=== PATIENT | female | born 1980 | race African-American/Black ===

== ENCOUNTER 2016-10-01 15:29 | Emergency (ER) | payer SELFPAY ==
[~2016-10-01] VITALS: Ht 162.6 cm; Wt 71.7 kg
[~2016-10-01 15:29] MED LIST: METH-37 PO; METO10TA81 PO; NITR100C62 PO; TRAM-29 PO
[2016-10-01 16:58] LABS: NEG OBC UR NEG; POS OBC UR POS
--- NOTE | 2016-10-01 17:16 | RAD ---
PROCEDURE CT abdomen and pelvis without intravenous contrast. HISTORY Abdominal pain, umbilical hernia. TECHNIQUE Helical CT of the abdomen and pelvis was performed without intravenous or oral contrast. Exposure: One or more of the following individualized dose reduction techniques were utilized for this examination: 1. Automated exposure control. 2. Adjustment of the mA and/or kV according to patient size. 3. Use of iterative reconstruction technique. COMPARISON None. FINDINGS Evaluation of solid organs is limited by lack of intravenous contrast. Evaluation of enteric structures may be limited by lack of oral contrast. Images of lower chest demonstrate small bilateral pleural effusions. Liver, spleen, pancreas, gallbladder, and bilateral adrenal glands are unremarkable. Bilateral kidneys and ureters are free of stone or obstruction. No bowel obstruction or inflammation is identified. Appendix is without evidence of inflammation. Urinary bladder is unremarkable. Uterus and adnexa have unremarkable CT appearance. No free air or significant free fluid is identified in the abdomen or pelvis. There is evidence of mild generalized fat stranding, suggesting mild generalized body wall edema. There is a small fat containing umbilical hernia. The hernia defect is estimated at 10 millimeters. There is some stranding within the herniated fat, suggesting inflammation. There might be an additional, adjacent fat containing hernia more inferiorly with hernia defect estimated at 4 millimeters. IMPRESSION 1. No evidence of urinary stone. 2. One and possibly 2 small fat containing umbilical hernias. The larger, more superior hernia demonstrates some stranding of the fat, suggesting inflammation. 3. Mild generalized body wall edema. 4. Small bilateral pleural effusions. Electronically signed by: Richard Freitas MD (Oct 01, 2016 17:15:06)
--- NOTE | 2016-10-01 17:46 | PHYS DOC ---
Past Medical History Past Medical History: Hypertension, Other Additional Past Medical Histor: uterine fibroid, hernia Past Surgical History: No Surgical History Alcohol Use: None Drug Use: None Social History Narrative: hx of PCP Adult General Chief Complaint Chief Complaint: ABDOMINAL PAIN HPI HPI 36-year-old female with a history of umbilical hernia states she was lifting something today and felt acute pain in the umbilical area. She states it feels like her hernia. She denies any nausea or vomiting. She is not any fever chills or sweats. [] Review of Systems Review of Systems Constitutional: Denies fever or chills [] Eyes: Denies change in visual acuity, redness, or eye pain [] HENT: Denies nasal congestion or sore throat [] Respiratory: Denies cough or shortness of breath [] Cardiovascular: No additional information not addressed in HPI [] GI: Per history of present illness [] : Denies dysuria or hematuria [] Musculoskeletal: Denies back pain or joint pain [] Integument: Denies rash or skin lesions [] Neurologic: Denies headache, focal weakness or sensory changes [] Endocrine: Denies polyuria or polydipsia [] Allergies Allergies Allergies Coded Allergies Type Severity Reaction Last Updated Verified No Known Drug Allergies 02/21/15 No Physical Exam Physical Exam Constitutional: Well developed, well nourished, no acute distress, non-toxic appearance. [] HENT: Normocephalic, atraumatic, bilateral external ears normal, oropharynx moist, no oral exudates, nose normal. [] Eyes: PERRLA, EOMI, conjunctiva normal, no discharge. [] Neck: Normal range of motion, no tenderness, supple, no stridor. [] Cardiovascular:Heart rate regular rhythm, no murmur [] Lungs & Thorax: Bilateral breath sounds clear to auscultation [] Abdomen: Very tender periumbilical area no rebound or guarding no palpable hernia. [] Skin: Warm, dry, no erythema, no rash. [] Back: No tenderness, no CVA tenderness. [] Extremities: No tenderness, no cyanosis, no clubbing, ROM intact, no edema. [] Neurologic: Alert and oriented X 3, normal motor function, normal sensory function, no focal deficits noted. [] Psychologic: Affect normal, judgement normal, mood normal. [] Current Patient Data Vital Signs Vital Signs Date Time Temp Pulse Resp B/P Pulse Ox O2 Delivery O2 Flow Rate FiO2 10/01/16 16:36 98.3 72 16 152/100 100 Room Air 98.3 Lab Values Laboratory Tests Test 10/01/16 16:45 Urine Test Negative (NEG) EKG EKG [] Radiology/Procedures Radiology/Procedures [] Impressions: PROCEDURE: ABDOMEN PELVIS WO CONTRAST PROCEDURE CT abdomen and pelvis without intravenous contrast. HISTORY Abdominal pain, umbilical hernia. TECHNIQUE Helical CT of the abdomen and pelvis was performed without intravenous or oral contrast. Exposure: One or more of the following individualized dose reduction techniques were utilized for this examination: 1. Automated exposure control. 2. Adjustment of the mA and/or kV according to patient size. 3. Use of iterative reconstruction technique. COMPARISON None. FINDINGS Evaluation of solid organs is limited by lack of intravenous contrast. Evaluation of enteric structures may be limited by lack of oral contrast. Images of lower chest demonstrate small bilateral pleural effusions. Liver, spleen, pancreas, gallbladder, and bilateral adrenal glands are unremarkable. Bilateral kidneys and ureters are free of stone or obstruction. No bowel obstruction or inflammation is identified. Appendix is without evidence of inflammation. Urinary bladder is unremarkable. Uterus and adnexa have unremarkable CT appearance. No free air or significant free fluid is identified in the abdomen or pelvis. There is evidence of mild generalized fat stranding, suggesting mild generalized body wall edema. There is a small fat containing umbilical hernia. The hernia defect is estimated at 10 millimeters. There is some stranding within the herniated fat, suggesting inflammation. There might be an additional, adjacent fat containing hernia more inferiorly with hernia defect estimated at 4 millimeters. IMPRESSION 1. No evidence of urinary stone. 2. One and possibly 2 small fat containing umbilical hernias. The larger, more superior hernia demonstrates some stranding of the fat, suggesting inflammation. 3. Mild generalized body wall edema. 4. Small bilateral pleural effusions. Course & Med Decision Making Course & Med Decision Making Pertinent Labs and Imaging studies reviewed. (See chart for details) [ED course: Evaluation reveals a 36-year-old female with some periumbilical tenderness CT shows some inflamed fat in the area. I spoke with Dr. Vázquez the surgeon who recommended anti-inflammatories and follow-up with him as an outpatient.] Dragon Disclaimer Dragon Disclaimer This electronic medical record was generated, in whole or in part, using a voice recognition dictation system. Departure Departure Impression: Primary Impression: Umbilical hernia Disposition: HOME, SELF-CARE Condition: STABLE Referrals: ALICE HADLEY MD (PCP) AMADOU VÁZQUEZ MD Follow with Dr. Vázquez this week if your pain continues. Take pain medicine as directed Patient Instructions: Hernia Additional Instructions: Thank you for allowing us to participate in your care today. Followup with your primary care physician in 3 days if your symptoms do not improve. Return to the emergency department you have any new or concerning findings. This should be evaluated by the primary care physician and any necessary consulting services for continued management within a few days after discharge. Return to emergency room if you have any new or concerning symptoms including but not limited to fever, chills, nausea, vomiting, intractable pain, any new rashes, chest pain, shortness of air, uncontrolled bleeding, difficulty breathing, and/or vision loss. You may have been prescribed medication that can change in your level of thinking and ability to operate machinery. These medications include hydrocodone and Ativan. Also, Benadryl has been known to do this as well. Be sure to check with your pharmacist and ask if the medications you've prescribed can affect your level of consciousness. I recommend not operating heavy machinery or driving while on medication such as these. Scripts Hydrocodone/Apap 5-325 (Amenia 5-325 Tablet)1 Each Tablet1 Tab PO PRN Q6HRS PRN PAIN #20 TAB Prov:ROSMERY PENDLETON DO 10/01/16 Naproxen 500 Mg Tablet1 Tab PO BID PRN PAIN #30 TAB Ref 1 Prov:ROSMERY PENDLETON DO 10/01/16 Problem Qualifiers Primary Impression: Umbilical hernia Obstruction and gangrene presence: without obstruction or gangrene Qualified Code: K42.9 - Umbilical hernia without obstruction or gangrene ROSMERY PENDLETON DO Oct 01, 2016 17:45
[2016-10-01] MEDS ORDERED: NAPR500T3 PO (17:55)
[2016-10-01] MEDS ORDERED: HYDR-971 PO (17:55)
[2016-10-01] MEDS ORDERED: KETOROLAC TROMETHAMINE 30 MG/ML SYRINGE. IV ONE (18:00)
[2016-10-01 18:35] VITALS: BP 141/92
== END 2016-10-01 18:40 | disposition home or self-care (01) ==
LOC: ER 15:29
DX: K42.9 Umbilical hernia without obstruction or gangrene (principal); I10 Essential (primary) hypertension
CPT/HCPCS: 74176; 81025; 96374; 99284; J1885

== ENCOUNTER 2018-04-24 10:25 | Inpatient (IN) | payer SELFPAY ==
[2018-04-24 10:56] LABS: ADD MAN DIFF? NO
[2018-04-24 10:59] LABS: BASO % 1 % (0-3); EOS % 0 % (0-3); HEMATOCRIT 32.8 % (36.0-47.0); LYMPH # 1.6 x10^3/uL (1.0-4.8); LYMPH % 24 % (24-48); MEAN CORPUSCULAR HEMOGLOBIN 28 pg (25-35); MEAN CORPUSCULAR HGB CONC 33 g/dL (31-37); MEAN CORPUSCULAR VOLUME 85 fL (79-100); MONO # 0.6 x10^3/uL (0.0-1.1); MONO % 9 % (0-9); NEUT # 4.4 x10^3uL (1.8-7.7); NEUT % 66 % (31-73); PLATELET COUNT 385 x10^3/uL (140-400); RED BLOOD COUNT 3.86 x10^6/uL (3.50-5.40); RED CELL DISTRIBUTION WIDTH 14.3 % (11.5-14.5); WHITE BLOOD COUNT 6.6 x10^3/uL (4.0-11.0)
[2018-04-24 11:47] LABS: BILIRUBIN,URINE NEGATIVE (NEG); CLARITY,URINE CLEAR; COLOR,URINE YELLOW; GLUCOSE,URINE NEGATIVE (NEG); NITRITE,URINE NEGATIVE (NEG); PH,URINE 6.5; PROTEIN,URINE NEGATIVE (NEG-TRACE)
[2018-04-24 11:51] LABS: BACTERIA,URINE FEW /HPF (0-FEW); BARBITURATES NEG (NEG); BENZODIAZEPINES NEG (NEG); CANNABINOIDS NEG (NEG); COCAINE NEG (NEG); METHADONE NEG (NEG); OPIATES NEG (NEG); PHENCYCLIDINE POS (NEG); RBC,URINE 0 /HPF (0-2); SQUAMOUS EPITHELIAL CELL,UR MANY /LPF
[2018-04-24 11:55] LABS: AMPHETAMINE/METHAMPHETAMINE POS (NEG); ETHANOL, URINE NEG (NEG)
[2018-04-24 12:19] LABS: ALBUMIN 4.2 g/dL (3.4-5.0); ALBUMIN/GLOBULIN RATIO 1.2 (1.0-1.7); ALK PHOS 67 U/L (46-116); ALT (SGPT) 17 U/L (14-59); ANION GAP 12 (6-14); AST (SGOT) 19 U/L (15-37); BLOOD UREA NITROGEN 9 mg/dL (7-20); BUN/CREATININE RATIO 11 (6-20); CALCIUM 9.2 mg/dL (8.5-10.1); CARBON DIOXIDE 27 mmol/L (21-32); CHLORIDE 100 mmol/L (98-107); CREATININE 0.8 mg/dL (0.6-1.0); GFR 96.1; GLUCOSE 96 mg/dL (70-99); SODIUM 139 mmol/L (136-145); TOTAL BILIRUBIN 0.4 mg/dL (0.2-1.0); TOTAL PROTEIN 7.6 g/dL (6.4-8.2)
[2018-04-24] MEDS: ENOXAPARIN 40 MG/0.4 ML SYRINGE. SQ (14:55)
[2018-04-24] MEDS: POTASSIUM CHLORIDE 20 MEQ TABLET.ER. PO (14:56)
[2018-04-24] MEDS: VANCOMYCIN 1.25 GM in IV NORMAL SALINE 250ML 250 ML IV (14:56)
[2018-04-24] MEDS: ZIPRASIDONE IM 20 MG VIAL. IM (15:03)
[2018-04-24] MEDS: VANCOMYCIN PER PHARMACY MC (15:56)
[2018-04-24] MEDS ORDERED: PIP/TAZO PER PHARMACY MC (17:30)
[2018-04-24] MEDS: PIPERACILLIN/TAZOBACTAM 3.375 GM in IV NORMAL SALINE 50ML 50 ML IV (18:27)
[2018-04-24 19:52] LABS: HIV AB SCREEN Nonreactive (Nonreactive)
[2018-04-24] MEDS: LACTOBACILLUS RHAMNOSUS GG 1 CAPSULE. PO (22:34)
[2018-04-25] MEDS: PIPERACILLIN/TAZOBACTAM 3.375 GM in IV NORMAL SALINE 50ML 50 ML IV ×3 (00:27→11:43)
[2018-04-25] MEDS: VANCOMYCIN 1 GM in IV NORMAL SALINE 250ML 250 ML IV (03:30)
[2018-04-25 07:08] LABS: ADD MAN DIFF? NO; BASO % 1 % (0-3); EOS # 0.2 x10^3/uL (0.0-0.7); EOS % 4 % (0-3); HEMATOCRIT 30.6 % (36.0-47.0); HEMOGLOBIN 10.1 g/dL (12.0-15.5); LYMPH # 1.2 x10^3/uL (1.0-4.8); LYMPH % 27 % (24-48); MEAN CORPUSCULAR HEMOGLOBIN 28 pg (25-35); MEAN CORPUSCULAR HGB CONC 33 g/dL (31-37); MEAN CORPUSCULAR VOLUME 86 fL (79-100); MONO # 0.4 x10^3/uL (0.0-1.1); MONO % 9 % (0-9); NEUT # 2.8 x10^3uL (1.8-7.7); NEUT % 60 % (31-73); PLATELET COUNT 310 x10^3/uL (140-400); RED BLOOD COUNT 3.58 x10^6/uL (3.50-5.40); RED CELL DISTRIBUTION WIDTH 14.5 % (11.5-14.5); WHITE BLOOD COUNT 4.7 x10^3/uL (4.0-11.0)
[2018-04-25 07:17] LABS: ANION GAP 8 (6-14); BLOOD UREA NITROGEN 10 mg/dL (7-20); CALCIUM 8.7 mg/dL (8.5-10.1); CARBON DIOXIDE 29 mmol/L (21-32); CHLORIDE 104 mmol/L (98-107); CREATININE 0.9 mg/dL (0.6-1.0); GFR 83.9; GLUCOSE 84 mg/dL (70-99); POTASSIUM 3.3 mmol/L (3.5-5.1); SODIUM 141 mmol/L (136-145)
[2018-04-25] MEDS: LACTOBACILLUS RHAMNOSUS GG 1 CAPSULE. PO (08:05)
[2018-04-25] MEDS: POTASSIUM CHLORIDE 20 MEQ TABLET.ER. PO (09:13)
[2018-04-25] MEDS ORDERED: CONTRAST GIVEN. MC (10:30)
[2018-04-25] MEDS: TETANUS AND DIPHTHERIA TOX/PF 0.5 ML DISP.SYRIN. VAX IM (10:44)
[2018-04-25] MEDS: IOHEXOL 240 MG/ML 50ML VIAL. PO (11:35)
[2018-04-25] MEDS: IOHEXOL 300 MG/ML 100ML VIAL. IV (11:35)
[2018-04-25] MEDS: VANCOMYCIN PER PHARMACY MC (12:19)
[2018-04-28 14:17] LABS: URINE HCG POC HCG NEGATIVE (Negative)
== END 2018-04-25 13:55 | disposition home or self-care (01) | DRG 603 ==
LOC: ER 10:25 → ED HOLD 13:46 → 5 SOUTH 15:40
DX: L03.115 Cellulitis of right lower limb (principal); E87.6 Hypokalemia; F41.9 Anxiety disorder, unspecified; I10 Essential (primary) hypertension; F17.210 Nicotine dependence, cigarettes, uncomplicated; F15.159 Other stimulant abuse with stimulant-induced psychotic disorder, unspecified; F16.159 Hallucinogen abuse with hallucinogen-induced psychotic disorder, unspecified; F16.129 Hallucinogen abuse with intoxication, unspecified; Z81.1 Family history of alcohol abuse and dependence
CPT/HCPCS: 36415; 73590; 74160; 80048; 80053; 80307; 81001; 81025; 85025; 86703; 90714; 93971; 96365; 96372; 99285; 99285-25; J1650; J2543; J3370; J3486; J7050; Q9966; Q9967

== ENCOUNTER 2019-11-08 10:18 | Emergency (ER) | payer SELFPAY ==
[~2019-11-08] VITALS: Ht 162.6 cm; Wt 65.0 kg
[~2019-11-08 10:18] MED LIST changes: +AMOX1TAB61 PO; +DOXY100C14 PO; +HYDR-3164 PO; +NAPR-514 PO; -TRAM-29 PO; +TRAM-48 PO
[2019-11-08 10:30] VITALS: BP 137/78
--- NOTE | 2019-11-08 11:00 | PHYS DOC ---
Past Medical History Past Medical History: Hypertension, Other Additional Past Medical Histor: uterine fibroid, hernia (JOSEPH HUMMEL APRN) Past Surgical History: No Surgical History (JOSEPH HUMMEL APRN) Smoking Status: Never Smoker Alcohol Use: None Drug Use: None (JOSEPH HUMMEL APRN) Adult General Chief Complaint Chief Complaint: LACERATION/AVULSION HPI HPI Patient is a 39 year old female who presents with yesterday at 1000 cut her self on the side of a old style porcelain bathtub on the upper right forearm just distal to the elbow. Patient is due for a tetanus. Patient states that she cleaned it with peroxide and has been keeping it covered but is beginning to drop. Rates her pain a 03/25. (JOSEPH HUMMEL APRN) Review of Systems Review of Systems Integument: Upper arm laceration. Denies rash or skin lesions [] All other systems were reviewed and found to be within normal limits, except as documented in this note. (JOSEPH HUMMEL APRN) Current Medications Current Medications Current Medications Medications (Trade) Dose Ordered Sig/Arnoldo Start Time Stop Time Status Last Admin Dose Admin Diphtheria/ Tetanus/Acell Pertussis (Boostrix) 0.5 ml ONCE ONCE 11/08/19 13:15 11/08/19 13:16 DC 11/08/19 13:24 0.5 ML Lidocaine HCl (Lidocaine 1% 20ml Vial) 20 ml 1X ONCE 11/08/19 11:30 11/08/19 11:31 DC 11/08/19 12:18 20 ML (MORE SHEEHAN MD) Allergies Allergies Allergies Coded Allergies Type Severity Reaction Last Updated Verified No Known Drug Allergies 02/21/15 No (MORE SHEEHAN MD) Physical Exam Physical Exam Constitutional: Well developed, well nourished, no acute distress, non-toxic appearance. [] HENT: Normocephalic, atraumatic, bilateral external ears normal, oropharynx caro st, no oral exudates, nose normal. [] Eyes: PERRLA, EOMI, conjunctiva normal, no discharge. [] Neck: Normal range of motion, no tenderness, supple, no stridor. [] Cardiovascular:Heart rate regular rhythm, no murmur [] Lungs & Thorax: Bilateral breath sounds clear to auscultation [] Abdomen: Bowel sounds normal, soft, no tenderness, no masses, no pulsatile masses. [] Skin: Right upper posterior forearm laceration. Warm, dry, no erythema, no rash. [] Back: No tenderness, no CVA tenderness. [] Extremities: No tenderness, no cyanosis, no clubbing, ROM intact, no edema. [] Neurologic: Alert and oriented X 3, normal motor function, normal sensory function, no focal deficits noted. [] Psychologic: Affect normal, judgement normal, mood normal. [] (JOSEPH HUMMEL APRN) Current Patient Data Vital Signs Vital Signs Date Time Temp Pulse Resp B/P (MAP) Pulse Ox O2 Delivery O2 Flow Rate FiO2 11/08/19 10:30 97.5 98 14 137/78 (97) 98 Room Air 97.5 (MORE SHEEHAN MD) EKG EKG [] (JOSEPH HUMMEL APRN) Radiology/Procedures Radiology/Procedures [] (JOSEPH HUMMEL APRN) Impressions: [facility] [address] [place] [address] IMAGING REPORT Signed PATIENT: YUE HERCULES ACCOUNT: [id number] : 1980 LOCATION: ER AGE: 39 SEX: F EXAM STATUS: PRE ER ORD. PHYSICIAN: JOSEPH HUMMEL APRN REASON: laceration,pt states cut to elbow area from soap dish yesterday. PROCEDURE: FOREARM RIGHT EXAM: Right forearm, 2 views. HISTORY: Trauma. COMPARISON: None. FINDINGS: 2 views of the right forearm are obtained. There is no fracture, dislocation or subluxation. No lytic or sclerotic osseous lesion is seen. There is soft tissue gas due to a reported laceration along the dorsal proximal forearm. No foreign body is seen. IMPRESSION: Laceration involving the proximal dorsal forearm. No foreign body or fracture is seen. Electronically signed by: Rula Ansari MD (11/08/2019 11:18 AM) [id number] DICTATED and SIGNED BY: RULA ANSARI MD DATE: 11/08/19 111 (JOSEPH HUMMEL APRN) Course & Med Decision Making Course & Med Decision Making Pertinent Labs and Imaging studies reviewed. (See chart for details) Edges are approximated. No redness or swelling or bruising or deformity. No signs of infection. Skin pink warm and dry. Full ROM of all joints in the effected extremity. Cap refill less than 3 seconds. Radial pulse present. No laxity in the joint. No swelling in the joint. Bleeding is controlled. Patient is given a tetanus in the ED. Denies numbness or tingling , focal weakness Laceration Repair by me: Anesthesia: 1% lidocaine locally Location: Right upper forearm Tendon/Joint/Nerves: No injury Foreign body: None detected after copious irrigation with saline and chlorhexidine and exploration Technique: 6 Simple Interrupted Sutures Complexity: No subcutaneous sutures/mucosal repair/edge excision Post Closure Length: 2.5 cm Patient's bleeding was easily controlled in the department and there is no indication of anemia. No evidence of compartment syndrome, neurologic injury, vascular injury, open joint, tendon laceration, or foreign body. Patient is appropriate for outpatient follow up. 48 hour wound check. Scar minimization instructions given. [] (JOSEPH HUMMEL APRN) Course & Med Decision Making Staff Physician Addendum: I was working in the ER during the course of this patient's visit. I was available for consultation as needed, but I was not directly involved in the care of this patient. (MORE SHEEHAN MD) Dragon Disclaimer Dragon Disclaimer This electronic medical record was generated, in whole or in part, using a voice recognition dictation system. (JOSEPH HUMMEL APRN) Departure Departure Impression: Primary Impression: Laceration Disposition: 01 HOME, SELF-CARE Condition: STABLE Referrals: NO PCP (PCP) Patient Instructions: Laceration Care, Adult Additional Instructions: Follow up with primary care provider if needed. Keep clean and covered. Sutures need to be removed in 10 days. Use Ibuprofen for pain. JOSEPH HUMMEL APRN Nov 08, 2019 11:00 MORE SHEEHAN MD Nov 09, 2019 06:36
--- NOTE | 2019-11-08 11:21 | RAD ---
EXAM: Right forearm, 2 views. HISTORY: Trauma. COMPARISON: None. FINDINGS: 2 views of the right forearm are obtained. There is no fracture, dislocation or subluxation. No lytic or sclerotic osseous lesion is seen. There is soft tissue gas due to a reported laceration along the dorsal proximal forearm. No foreign body is seen. IMPRESSION: Laceration involving the proximal dorsal forearm. No foreign body or fracture is seen. Electronically signed by: Rula Walton MD (11/08/2019 11:18 AM) [id number]
[2019-11-08] MEDS ORDERED: LIDOCAINE 1% Multi-Dose 20 ML VIAL. INJ ONE (11:30)
[2019-11-08] MEDS ORDERED: DIPHTH,PERTUSS(ACELL),TET TOX 0.5 ML DISP.SYRIN. VAX IM ONE (13:15)
== END 2019-11-08 13:41 | disposition home or self-care (01) ==
LOC: ER 10:18
DX: S51.811A Laceration without foreign body of right forearm, initial encounter (principal); I10 Essential (primary) hypertension; X78.8XXA Intentional self-harm by other sharp object, initial encounter; Y93.89 Activity, other specified; Y92.89 Other specified places as the place of occurrence of the external cause; Y99.8 Other external cause status
CPT/HCPCS: 12001; 73090; 90471; 90715; 99283

== ENCOUNTER 2020-01-07 19:04 | Emergency (ER) | payer SELFPAY ==
[~2020-01-07] VITALS: Ht 162.6 cm; Wt 68.1 kg
--- NOTE | 2020-01-07 19:33 | PHYS DOC ---
Past Medical History Past Medical History: Hypertension, Other Additional Past Medical Histor: uterine fibroid, hernia (JOSEPH HUMMEL APRN) Past Surgical History: No Surgical History (JOSEPH HUMMEL APRN) Smoking Status: Never Smoker Alcohol Use: None Drug Use: None (JOSEPH HUMMEL APRN) General Adult EDM: Chief Complaint: VAGINAL BLEEDING HPI: HPI: Patient is a 39 year old female who presents with states that she has not had a period in 2 months and then earlier this week she began to have spotting. She states she has no pain but she is just spotting. Patient has no other complaints. She does state that she does not trust her sexual intercourse partner and would like to be tested and treated for sexually transmitted diseases today. (JOSEPH HUMMEL APRN) Review of Systems: Review of Systems: : Denies dysuria. Vaginal bleeding [] (JOSEPH HUMMEL APRN) Heart Score: Risk Factors: Risk Factors: DM, Current or recent (<one month) smoker, HTN, HLP, family history of CAD, obesity. Risk Scores: Score 0 - 3: 2.5% MACE over next 6 weeks - Discharge Home Score 4 - 6: 20.3% MACE over next 6 weeks - Admit for Clinical Observation Score 7 - 10: 72.7% MACE over next 6 weeks - Early Invasive Strategies (JOSEPH HUMMEL APRN) Allergies: Allergies: Allergies Coded Allergies Type Severity Reaction Last Updated Verified No Known Drug Allergies 02/21/15 No (JOSEPH HUMMEL APRN) Physical Exam: PE: Constitutional: Well developed, well nourished, no acute distress, non-toxic appearance. [] HENT: Normocephalic, atraumatic, bilateral external ears normal, oropharynx moist, no oral exudates, nose normal. [] Eyes: PERRLA, EOMI, conjunctiva normal, no discharge. [] Neck: Normal range of motion, no tenderness, supple, no stridor. [] Cardiovascular:Heart rate regular rhythm, no murmur [] Lungs & Thorax: Bilateral breath sounds clear to auscultation [] Abdomen: Bowel sounds normal, soft, no tenderness, no masses, no pulsatile masses. [] Skin: Warm, dry, no erythema, no rash. [] Back: No tenderness, no CVA tenderness. [] Extremities: No tenderness, no cyanosis, no clubbing, ROM intact, no edema. [] Neurologic: Alert and oriented X 3, normal motor function, normal sensory function, no focal deficits noted. [] Psychologic: Affect normal, judgement normal, mood normal. Normal physical exam [] (JOSEPH HUMMEL APRN) EKG: EKG: [] (JOSEPH HUMMEL APRN) Radiology/Procedures: Radiology/Procedures: [] (JOSEPH HUMMEL APRN) Impression: PROCEDURE: PELVIS COMPLETE PELVIS COMPLETE History: Dysfunctional vaginal bleeding Comparison: March 24, 2015 Findings: Multiple transabdominal sonographic images of pelvis are submitted. Uterus measured 9.4 x 7.1 x 8.6 cm. There is heterogeneity of the uterus with likely large mass on the order of 7.5 x 6.3 x 6.2 cm. There is loss of definition of the endometrium due to the large mass which abuts the endometrial cavity. Visualized endometrium is estimated about 0.2 cm in thickness. Right ovary measured about 3.3 x 2.5 x 2.5 cm. There is a focus of different echogenicity of the right ovary which is mostly hypoechoic on the order of 1.7 x 1.9 x 1.5 cm. There is normal low resistance vascularity of the right ovary. Left ovary measured 2.7 x 2.8 x 2 cm. There is a small focus of hypoechogenicity of the left ovary about 1.8 x 1.9 x 1.1 cm. There is normal low resistance vascularity of the left ovary. No significant free fluid is demonstrated. Impression: 1. Uterus is enlarged. There is large uterine mass up to 7.5 cm, likely large fibroid. There is poor definition of the endometrium although visualized endometrial thickness is within normal limits in thickness. 2. There are some small cysts/dominant follicles of the ovaries bilaterally. Electronically signed by: Sandeep Collier MD (01/07/2020 8:14 PM) [facility] (NUNO TAO Jr. DO) Course & Med Decision Making: Course & Med Decision Making Pertinent Labs and Imaging studies reviewed. (See chart for details) Patient is ambulatory with a steady gait. Skin pink warm and dry. Patient states she is not been taking her lisinopril as she is supposed to because it makes her "go to the restroom a lot". Abdomen is soft and nontender. Speaks in full clear sentences. No extremity swelling. Patient does admit to smoking PCP 1-2 weeks ago. Patient denies abdominal pain, nausea, vomiting, diarrhea, dysuria, back pain, headache, dizziness, chest pain, soa, numbness or tingling, vision changes, focal weakness. Pelvic Exam: [employer] present Abdomen: Nontender External Genitalia: Normal Skin Speculum: Normal vaginal mucosa, normal cervical discharge Bimanual: No adnexal masses or tenderness, No CMT Patient is treated with Rocephin and azithromycin for chlamydia and gonorrhea. She is educated that she will be called in 48 hours only if they come back positive. 2000: Patient signed over to Dr Tao [] (JOSEPH HUMMEL APRN) Dragon Disclaimer: Draglore Disclaimer: This electronic medical record was generated, in whole or in part, using a voice recognition dictation system. (JOSEPH HUMMEL APRN) Departure Departure Impression: Primary Impression: Uterine fibroid Qualified Codes: D25.9 - Leiomyoma of uterus, unspecified Disposition: HOME, SELF-CARE Condition: STABLE Referrals: NO PCP (PCP) ERICKA NUÑEZ MD Patient Instructions: Uterine Fibroid, [id number] JOSEPH HUMMEL APRN Jan 07, 2020 19:33 NUNO TAO Jr. DO Jan 07, 2020 20:53
[2020-01-07 19:38] LABS: BILIRUBIN,URINE NEGATIVE (NEG); CLARITY,URINE CLOUDY; COLOR,URINE YELLOW; NITRITE,URINE NEGATIVE (NEG); PH,URINE 6.5 (<5.0-8.0); PROTEIN,URINE NEGATIVE (NEG-TRACE); UROBILINOGEN,URINE 0.2 mg/dL (0.2 mg/dL)
[2020-01-07 19:42] LABS: BASO % 0 % (0-3); EOS # 0.1 x10^3/uL (0.0-0.7); EOS % 2 % (0-3); HEMOGLOBIN 10.4 g/dL (12.0-15.5); LYMPH % 34 % (24-48); MEAN CORPUSCULAR HEMOGLOBIN 27 pg (25-35); MEAN CORPUSCULAR HGB CONC 32 g/dL (31-37); MEAN CORPUSCULAR VOLUME 84 fL (79-100); MONO # 0.5 x10^3/uL (0.0-1.1); MONO % 8 % (0-9); NEUT # 3.2 x10^3/uL (1.8-7.7); NEUT % 55 % (31-73); PLATELET COUNT 301 x10^3/uL (140-400); RED BLOOD COUNT 3.81 x10^6/uL (3.50-5.40); RED CELL DISTRIBUTION WIDTH 14.8 % (11.5-14.5); WHITE BLOOD COUNT 5.9 x10^3/uL (4.0-11.0)
[2020-01-07 19:47] LABS: SQUAMOUS EPITHELIAL CELL,UR MOD /LPF
[2020-01-07 19:48] LABS: RBC,URINE 0 /HPF (0-2)
[2020-01-07 19:49] LABS: BACTERIA,URINE 0 /HPF (0-FEW)
[2020-01-07 19:56] LABS: CALCIUM 8.4 mg/dL (8.5-10.1); CREATININE 0.7 mg/dL (0.6-1.0); GFR 111.6; POTASSIUM 3.9 mmol/L (3.5-5.1)
[2020-01-07] MEDS ORDERED: AZITHROMYCIN 250 MG TABLET. PO ONE (20:00)
[2020-01-07] MEDS ORDERED: cefTRIAXone IM 250 MG VIAL IM ONE (20:00)
[2020-01-07 20:01] LABS: ALBUMIN 3.4 g/dL (3.4-5.0); ALBUMIN/GLOBULIN RATIO 1.1 (1.0-1.7); TOTAL BILIRUBIN 0.2 mg/dL (0.2-1.0); TOTAL PROTEIN 6.6 g/dL (6.4-8.2)
--- NOTE | 2020-01-07 20:17 | RAD ---
PELVIS COMPLETE History: Dysfunctional vaginal bleeding Comparison: March 24, 2015 Findings: Multiple transabdominal sonographic images of pelvis are submitted. Uterus measured 9.4 x 7.1 x 8.6 cm. There is heterogeneity of the uterus with likely large mass on the order of 7.5 x 6.3 x 6.2 cm. There is loss of definition of the endometrium due to the large mass which abuts the endometrial cavity. Visualized endometrium is estimated about 0.2 cm in thickness. Right ovary measured about 3.3 x 2.5 x 2.5 cm. There is a focus of different echogenicity of the right ovary which is mostly hypoechoic on the order of 1.7 x 1.9 x 1.5 cm. There is normal low resistance vascularity of the right ovary. Left ovary measured 2.7 x 2.8 x 2 cm. There is a small focus of hypoechogenicity of the left ovary about 1.8 x 1.9 x 1.1 cm. There is normal low resistance vascularity of the left ovary. No significant free fluid is demonstrated. Impression: 1. Uterus is enlarged. There is large uterine mass up to 7.5 cm, likely large fibroid. There is poor definition of the endometrium although visualized endometrial thickness is within normal limits in thickness. 2. There are some small cysts/dominant follicles of the ovaries bilaterally. Electronically signed by: Sandeep Collier MD (01/07/2020 8:14 PM) [facility]
[2020-01-07 20:24] VITALS: BP 159/99
== END 2020-01-07 21:04 | disposition home or self-care (01) ==
LOC: ER 19:04
DX: D25.9 Leiomyoma of uterus, unspecified (principal); I10 Essential (primary) hypertension; Z98.890 Other specified postprocedural states
CPT/HCPCS: 76856; 80053; 81001; 81025; 85025; 87086; 87491; 87591; 96372; 99284; J0696; Q0111

== ENCOUNTER 2020-01-30 03:25 | Emergency (ER) | payer SELFPAY ==
[~2020-01-30] VITALS: Ht 162.6 cm; Wt 65.3 kg
[2020-01-30] MEDS ORDERED: HYDROcodone/APAP 7.5/325MG 1 TAB TABLET PO ONE (04:00)
--- NOTE | 2020-01-30 04:43 | RAD ---
Ribs left with PA chest History: Pain PA view of the chest and dedicated views of the left ribs were obtained. The heart and pulmonary vessels appear normal. The lungs and pleural margins are clear. The visualized osseous structures appear intact. Impression: No acute findings. No evidence of a bony displaced rib fracture. Electronically signed by: Leroy Jaramillo III, MD (01/30/2020 4:40 AM) [id number]
[2020-01-30] MEDS ORDERED: TRAM50TA PO (05:22)
[2020-01-30] MEDS ORDERED: DICL50TA4 PO (05:22)
--- NOTE | 2020-01-30 05:23 | PHYS DOC ---
Past Medical History Past Medical History: Hypertension, Other Additional Past Medical Histor: uterine fibroid, hernia Past Surgical History: No Surgical History Smoking Status: Never Smoker Alcohol Use: Occasionally Additional Information: wine Drug Use: None General Adult EDM: Chief Complaint: MECHANICAL FALL HPI: HPI: Patient is a 39 year old female who presents with complaint of left-sided rib pain after falling while going downstairs. Patient states that she fell onto her ribs and now she has pain with movement and when she breathes. She denies any other injuries. She denies neck pain or head pain. She denies loss of consciousness. Patient rates pain as severe. [] Review of Systems: Review of Systems: Constitutional: Denies fever or chills. [] Respiratory: Denies cough or shortness of breath. [] Cardiovascular: Denies chest pain or edema. [] GI: Denies abdominal pain, nausea, vomiting or diarrhea. [] Neurologic: Denies headache, focal weakness or sensory changes. [] Heart Score: Risk Factors: Risk Factors: DM, Current or recent (<one month) smoker, HTN, HLP, family history of CAD, obesity. Risk Scores: Score 0 - 3: 2.5% MACE over next 6 weeks - Discharge Home Score 4 - 6: 20.3% MACE over next 6 weeks - Admit for Clinical Observation Score 7 - 10: 72.7% MACE over next 6 weeks - Early Invasive Strategies Current Medications: Current Medications Medications (Trade) Dose Ordered Sig/Arnoldo Start Time Stop Time Status Last Admin Dose Admin Acetaminophen/ Hydrocodone Bitart (Lortab 7.5/325) 1 tab 1X ONCE 01/30/20 04:00 01/30/20 04:15 DC 01/30/20 04:12 1 TAB Allergies: Allergies: Allergies Coded Allergies Type Severity Reaction Last Updated Verified No Known Drug Allergies 02/21/15 No Physical Exam: PE: Constitutional: Well developed, well nourished, no acute distress, non-toxic appearance. [] HENT: Normocephalic, atraumatic, bilateral external ears normal, oropharynx m oist, no oral exudates, nose normal. [] Neck: Normal range of motion, no tenderness, supple, no stridor. [] Cardiovascular: Regular rate and rhythm. There is reproducible chest wall tenderness along the left lower anterior as well as lateral rib margin [] Lungs & Thorax: Bilateral breath sounds clear to auscultation [] Abdomen: Bowel sounds normal, soft, no tenderness. [] Back: No tenderness, no CVA tenderness. [] Current Patient Data: Labs: Laboratory Tests Test 01/30/20 04:12 POC Urine HCG, Qualitative Hcg negative (Negative) Vital Signs: Vital Signs Date Time Temp Pulse Resp B/P (MAP) Pulse Ox O2 Delivery O2 Flow Rate FiO2 01/30/20 04:33 98.5 86 18 98 98.5 01/30/20 04:12 Room Air 01/30/20 03:43 157/95 (115) EKG: EKG: [] Radiology/Procedures: Radiology/Procedures: [] Impression: PROCEDURE: RIBS LEFT AND PA CHEST Ribs left with PA chest History: Pain PA view of the chest and dedicated views of the left ribs were obtained. The heart and pulmonary vessels appear normal. The lungs and pleural margins are clear. The visualized osseous structures appear intact. Impression: No acute findings. No evidence of a bony displaced rib fracture. Electronically signed by: Nayla Jaramillo III, MD (01/30/2020 4:40 AM) [id number] DICTATED and SIGNED BY: NAYLA JARAMILLO III, MD DATE: 01/30/20 0440 Course & Med Decision Making: Course & Med Decision Making Pertinent Labs and Imaging studies reviewed. (See chart for details) [] Dragon Disclaimer: Dragon Disclaimer: This electronic medical record was generated, in whole or in part, using a voice recognition dictation system. Departure Departure Impression: Primary Impression: Contusion of rib on left side Qualified Codes: S20.212A - Contusion of left front wall of thorax, initial encounter Disposition: 01 HOME, SELF-CARE Condition: STABLE Referrals: UNKNOWN PCP NAME (PCP) Patient Instructions: Rib Contusion Scripts Tramadol Hcl (TRAMADOL HCL) 50 Mg Tablet 50 MG PO Q6HRS PRN for PAIN, #12 TAB Prov: NUNO BISWAS Jr. DO 01/30/20 Diclofenac Sodium (DICLOFENAC SODIUM) 50 Mg Tablet.dr 1 TAB PO BID PRN for PAIN, #20 TAB Prov: NUNO BISWAS Jr. DO 01/30/20 NUNO BISWAS Jr. DO January 30, 2020 05:22
[2020-01-30] MEDS ORDERED: IBUPROFEN 400 MG TABLET. PO ONE (06:04)
[2020-01-30] MEDS ORDERED: IBUPROFEN 200 MG TABLET. PO ONE ×2 (06:04→06:15)
[2020-01-30 06:10] VITALS: BP 154/92
== END 2020-01-30 06:14 | disposition home or self-care (01) ==
LOC: ER 03:25
DX: S20.212A Contusion of left front wall of thorax, initial encounter (principal); I10 Essential (primary) hypertension; W10.8XXA Fall (on) (from) other stairs and steps, initial encounter; Y93.89 Activity, other specified; Y92.89 Other specified places as the place of occurrence of the external cause; Y99.8 Other external cause status
CPT/HCPCS: 71101; 81025; 99285

== ENCOUNTER 2020-02-04 15:08 | Emergency (ER) | payer SELFPAY ==
[~2020-02-04] VITALS: Ht 162.6 cm; Wt 67.2 kg
[~2020-02-04 15:08] MED LIST changes: +DICL50TA4 PO; +TRAM50TA PO
[2020-02-04 15:38] LABS: BILIRUBIN,URINE NEGATIVE (NEG); CLARITY,URINE CLEAR; COLOR,URINE YELLOW; NITRITE,URINE NEGATIVE (NEG); PROTEIN,URINE NEGATIVE (NEG-TRACE); UROBILINOGEN,URINE 0.2 mg/dL (0.2 mg/dL)
[2020-02-04 15:43] LABS: BARBITURATES NEG (NEG); BENZODIAZEPINES NEG (NEG); CANNABINOIDS POS (NEG); COCAINE NEG (NEG); METHADONE NEG (NEG); OPIATES NEG (NEG); PHENCYCLIDINE POS (NEG)
[2020-02-04 15:49] LABS: AMPHETAMINE/METHAMPHETAMINE POS (NEG)
[2020-02-04 15:54] LABS: BACTERIA,URINE MANY /HPF (0-FEW); RBC,URINE 0 /HPF (0-2); SQUAMOUS EPITHELIAL CELL,UR MANY /LPF; WBC,URINE OCC /HPF (0-4)
--- NOTE | 2020-02-04 17:19 | PHYS DOC ---
Past Medical History Past Medical History: Hypertension, Other Additional Past Medical Histor: uterine fibroid, hernia Past Surgical History: No Surgical History Smoking Status: Never Smoker Alcohol Use: Occasionally Drug Use: None Social History Narrative: PT REPORTS THAT SHE LAST USED METH AND MARIJUANA X 8 DAYS AGO General Adult EDM: Chief Complaint: LOWER EXT PAIN HPI: HPI: Patient is a 39 year old female with history of hypertension, psychosis, who presents to the ED today complaining she cannot see things crawling on her right lower extremity. Patient states this began this afternoon. She is holding her right lower extremity tight just below the knee and insisting she is trying to push the "things" crawling up her leg tight. She reports using Meth 1 week ago. Review of Systems: Review of Systems: Constitutional: Denies fever or chills. [] Eyes: Denies change in visual acuity. [] HENT: Denies nasal congestion or sore throat. [] Respiratory: Denies cough or shortness of breath. [] Cardiovascular: Denies chest pain or edema. [] GI: Denies abdominal pain, nausea, vomiting, bloody stools or diarrhea. [] : Denies dysuria. [] Musculoskeletal: Denies back pain or joint pain. [] Integument: Denies rash. [] Neurologic: Denies headache, focal weakness or sensory changes. [] Psychiatric: hx of psychosis. Reports things crawling on her right leg. Heart Score: Risk Factors: Risk Factors: DM, Current or recent (<one month) smoker, HTN, HLP, family history of CAD, obesity. Risk Scores: Score 0 - 3: 2.5% MACE over next 6 weeks - Discharge Home Score 4 - 6: 20.3% MACE over next 6 weeks - Admit for Clinical Observation Score 7 - 10: 72.7% MACE over next 6 weeks - Early Invasive Strategies Allergies: Allergies: Allergies Coded Allergies Type Severity Reaction Last Updated Verified No Known Drug Allergies 02/21/15 No Physical Exam: PE: Constitutional: Well developed, well nourished, no acute distress, non-toxic appearance. [] HENT: Normocephalic, atraumatic, bilateral external ears normal, oropharynx moist, no oral exudates, nose normal. [] Eyes: PERRLA, EOMI, conjunctiva normal, no discharge. [] Neck: Normal range of motion, no tenderness, supple, no stridor. [] Cardiovascular:Heart rate regular rhythm, no murmur [] Lungs & Thorax: Bilateral breath sounds clear to auscultation [] Abdomen: Bowel sounds normal, soft, no tenderness, no masses, no pulsatile masses. [] Skin: Warm, dry, no erythema, no rash. [] Back: No tenderness, no CVA tenderness. [] Extremities: No tenderness, no cyanosis, no clubbing, ROM intact, no edema. [] Neurologic: Alert and oriented X 3, normal motor function, normal sensory function, no focal deficits noted. [] Psychologic: Patient appears anxious, Current Patient Data: Labs: Laboratory Tests Test 02/04/20 15:30 Urine Collection Type Unknown Urine Color Yellow Urine Clarity Clear Urine pH 6.0 (<5.0-8.0) Urine Specific [place] 1.020 (1.000-1.030) Urine Protein Negative mg/dL (NEG-TRACE) Urine Glucose (UA) Negative mg/dL (NEG) Urine Ketones (Stick) Negative mg/dL (NEG) Urine Blood Negative (NEG) Urine Nitrite Negative (NEG) Urine Bilirubin Negative (NEG) Urine Urobilinogen Dipstick 0.2 mg/dL (0.2 mg/dL) Urine Leukocyte Esterase Negative (NEG) Urine RBC 0 /HPF (0-2) Urine WBC Occ /HPF (0-4) Urine Squamous Epithelial Cells Many /LPF Urine Bacteria Many /HPF (0-FEW) Urine Mucus Marked /LPF Urine Opiates Screen Neg (NEG) Urine Methadone Screen Neg (NEG) Urine Barbiturates Neg (NEG) Urine Phencyclidine Screen Pos (NEG) Urine Amphetamine/Methamphetamine Pos (NEG) Urine Benzodiazepines Screen Neg (NEG) Urine Cocaine Screen Neg (NEG) Urine Cannabinoids Screen Pos (NEG) Urine Ethyl Alcohol Neg (NEG) Vital Signs: Vital Signs Date Time Temp Pulse Resp B/P (MAP) Pulse Ox O2 Delivery O2 Flow Rate FiO2 02/04/20 15:16 97.9 134 22 166/98 (120) 99 Room Air 97.9 EKG: EKG: [] Radiology/Procedures: Radiology/Procedures: [] Course & Med Decision Making: Course & Med Decision Making Pertinent Labs and Imaging studies reviewed. (See chart for details) This is a 39-year-old female patient with history of psychosis presenting to the ED today stating she feels there is something crawling on her right lower extremity. Patient's right lower extremity has no acute findings. Drug screen positive for PCP, marijuana and meth use. Polly from the PAT team is in the ED talking to patient. Patient given resources for f/u. Angelina Disclaimer: Angelina Disclaimer: This electronic medical record was generated, in whole or in part, using a voice recognition dictation system. Departure Departure Impression: Primary Impression: Drug abuse Additional Impression: Psychosis Qualified Codes: F29 - Unspecified psychosis not due to a substance or known physiological condition Disposition: 01 HOME, SELF-CARE Condition: STABLE Referrals: UNKNOWN PCP NAME (PCP) follow up with resources provided by PAT team Patient Instructions: Drug Abuse, FAQs, Methamphetamine Abuse, Complications Additional Instructions: Follow up with resources provided by PAT team as soon as possible RUBINA MILES APRN February 04, 2020 17:19
[2020-02-04 17:26] VITALS: BP 100/55
== END 2020-02-04 17:44 | disposition home or self-care (01) ==
LOC: ER 15:08
DX: F15.10 Other stimulant abuse, uncomplicated (principal); F29 Unspecified psychosis not due to a substance or known physiological condition; I10 Essential (primary) hypertension
CPT/HCPCS: 80307; 81001; 99283

== ENCOUNTER 2021-04-15 23:44 | Emergency (ER) | payer SELFPAY ==
[~2021-04-15] VITALS: Ht 162.6 cm; Wt 70.5 kg
[~2021-04-15 23:44] MED LIST changes: +DOXY-181 PO; -DOXY100C14 PO
--- NOTE | 2021-04-16 01:01 | PHYS DOC ---
Past Medical History Past Medical History: Hypertension, Other Additional Past Medical Histor: uterine fibroid, hernia Past Surgical History: No Surgical History Smoking Status: Never Smoker Alcohol Use: None Drug Use: None General Adult EDM: Chief Complaint: VAGINAL PROBLEM HPI: HPI: Patient is a 41 year old female who presents with lower abdominal discomfort and thick white vaginal discharge. This started 3 days ago, the day after intercourse. Does not use barrier contraception. She has no history of STI personally. Her partner was recently released from [facility], and she is unsure of his STI status. She has no fever/chills. She does have slight burning with urination and with wiping. No n/v, diarrhea. Review of Systems: Review of Systems: Constitutional: Denies fever or chills. [] Eyes: Denies change in visual acuity. [] HENT: Denies nasal congestion or sore throat. [] Respiratory: Denies cough or shortness of breath. [] Cardiovascular: Denies chest pain or edema. [] GI: + abdominal pain. No nausea, vomiting, bloody stools or diarrhea. [] : + dysuria and vaginal discharge. [] Musculoskeletal: Denies back pain or joint pain. [] Integument: Denies rash. [] Neurologic: Denies headache, focal weakness or sensory changes. [] Endocrine: Denies polyuria or polydipsia. [] Lymphatic: Denies swollen glands. [] Psychiatric: Denies depression or anxiety. [] Heart Score: C/O Chest Pain: N/A Risk Factors: Risk Factors: DM, Current or recent (<one month) smoker, HTN, HLP, family history of CAD, obesity. Risk Scores: Score 0 - 3: 2.5% MACE over next 6 weeks - Discharge Home Score 4 - 6: 20.3% MACE over next 6 weeks - Admit for Clinical Observation Score 7 - 10: 72.7% MACE over next 6 weeks - Early Invasive Strategies Family History: Family History: No pertinent family hx Allergies: Allergies: Allergies Coded Allergies Type Severity Reaction Last Updated Verified No Known Drug Allergies 02/21/15 No Physical Exam: PE: Constitutional: Well developed, well nourished, no acute distress, non-toxic appearance. [] HENT: Normocephalic, atraumatic, bilateral external ears normal, oropharynx moist, no oral exudates, nose normal. [] Eyes: PERRLA, EOMI, conjunctiva normal, no discharge. [] Neck: Normal range of motion, no tenderness, supple, no stridor. [] Cardiovascular:Heart rate regular rhythm, no murmur [] Lungs & Thorax: Bilateral breath sounds clear to auscultation [] Abdomen: No significant lower abdominal/pelvic ttp. Bowel sounds normal, soft, no tenderness, no masses, no pulsatile masses. [] : Normal external genitalia. No evidence of herpes lesions. There is thick white discharge in the vaginal vault. Cervix is only partially visualized, but there is some red friable tissue. Partially/briefly visualized white ulcerated portion of the cervix was not fully seen. Skin: Warm, dry, no erythema, no rash. [] Back: No tenderness, no CVA tenderness. [] Extremities: No tenderness, no cyanosis, no clubbing, ROM intact, no edema. [] Neurologic: Alert and oriented X 3, normal motor function, normal sensory function, no focal deficits noted. [] Psychologic: Affect normal, judgement normal, mood normal. [] Current Patient Data: Labs: Laboratory Tests Test 04/16/21 00:01 POC Urine HCG, Qualitative Hcg negative (Negative) Vital Signs: Vital Signs Date Time Temp Pulse Resp B/P (MAP) Pulse Ox O2 Delivery O2 Flow Rate FiO2 04/15/21 23:59 98.3 105 20 153/110 (70) 99 Room Air 98.3 EKG: EKG: [] Radiology/Procedures: Radiology/Procedures: [] Course & Med Decision Making: Course & Med Decision Making Pertinent Labs and Imaging studies reviewed. (See chart for details) Patient is a 41-year-old female who presents with 3 days of thick white vaginal discharge, mild dysuria, and lower abdominal discomfort. On arrival is afebrile, mildly tachycardic to low 100s, but hemodynamically stable. Well appearing exam without significant lower abdominal ttp. Do not feel that she requires pelvic imaging for TOA or torsion etc. Do not think this is related to appy, will defer an abdominal imaging. Hcg negative. Most concerned about PID/STI. Will perform pelvic exam and obtain wet prep, gc/chlamydia and examine for herpetic lesions. Will also check a UA for UTI. 0100 Exam without evidence of herpetic lesions. Thick white discharge seen. Will treat for PID empirically with ceftriaxone IM here, and doxycycline and metronidazole twice daily. On cervical exam there was a concerning ulcerated portion of the cervix, that may represent potential malignancy. It was not fully visualized after multiple attempts. I expressed this to the patient and told her that it is vitally important that she follows up with them PUBLIC ACCOUNTANT doctor. She expresses understanding. I provided her with follow up information to be seen by our on- call cookie breaker. 0229 Wet prep neg for trichomonas and yeast. Suggestive of BV, which will be treated by empiric PID tx. 0308 Dragon Disclaimer: Dragon Disclaimer: This electronic medical record was generated, in whole or in part, using a voice recognition dictation system. Departure Departure Impression: Primary Impression: PID (acute pelvic inflammatory disease) Additional Impressions: Cervical ulceration Bacterial vaginosis Disposition: HOME / SELF CARE / HOMELESS Condition: STABLE Referrals: UNKNOWN PCP NAME (PCP) ERICKA NUÑEZ MD Please call the offices of Dr. Nuñez to schedule a follow-up appointment. Additional Instructions: I am concerned that you may have a cancer on your cervix. This will need to be checked by a specialist in the near future. Please call the offices of Dr. Nuñez, cookie breaker, to schedule an appointment to follow up. I am also concerned that you may have pelvic inflammatory disease, this is an infection caused by sexually transmitted bacteria. You will need to take antibiotics for this. Please take doxycycline and metronidazole as prescribed. Metronidazole can make you very ill if you drink alcohol. be sure not to drink while taking this medication. Scripts Metronidazole (METRONIDAZOLE) 500 Mg Tablet 1 TAB PO BID for 14 Days, #28 TAB 0 Refills Prov: HANNAH QUINTANA MD 04/16/21 Doxycycline Hyclate (DOXYCYCLINE HYCLATE) 100 Mg Capsule 1 CAP PO BID for 14 Days, #28 CAP Prov: HANNAH QUINTANA MD 04/16/21 HANNAH QUINTANA MD Apr 16, 2021 01:01
[2021-04-16 01:19] LABS: BASO % 1 % (0-3); EOS # 0.1 x10^3/uL (0.0-0.7); EOS % 2 % (0-3); HEMATOCRIT 31.1 % (36.0-47.0); HEMOGLOBIN 10.2 g/dL (12.0-15.5); LYMPH # 1.3 x10^3/uL (1.0-4.8); LYMPH % 26 % (24-48); MEAN CORPUSCULAR HEMOGLOBIN 28 pg (25-35); MEAN CORPUSCULAR HGB CONC 33 g/dL (31-37); MEAN CORPUSCULAR VOLUME 84 fL (79-100); MONO # 0.5 x10^3/uL (0.0-1.1); MONO % 9 % (0-9); NEUT # 3.1 x10^3/uL (1.8-7.7); NEUT % 62 % (31-73); PLATELET COUNT 285 x10^3/uL (140-400); RED BLOOD COUNT 3.69 x10^6/uL (3.50-5.40); RED CELL DISTRIBUTION WIDTH 15.3 % (11.5-14.5); WHITE BLOOD COUNT 5.1 x10^3/uL (4.0-11.0)
[2021-04-16 01:24] LABS: BILIRUBIN,URINE NEGATIVE (NEG); CLARITY,URINE CLEAR; COLOR,URINE YELLOW; NITRITE,URINE NEGATIVE (NEG); PROTEIN,URINE NEGATIVE (NEG-TRACE)
[2021-04-16 01:39] LABS: CALCIUM 8.9 mg/dL (8.5-10.1); CREATININE 0.8 mg/dL (0.6-1.0); GFR 94.7; POTASSIUM 4.1 mmol/L (3.5-5.1)
[2021-04-16 01:44] LABS: ALBUMIN 3.2 g/dL (3.4-5.0); TOTAL BILIRUBIN 0.1 mg/dL (0.2-1.0); TOTAL PROTEIN 6.4 g/dL (6.4-8.2)
[2021-04-16 01:44] LABS: BACTERIA,URINE FEW /HPF (0-FEW)
[2021-04-16 02:30] VITALS: BP 151/99
[2021-04-16] MEDS ORDERED: DOXY100C3 PO (02:34)
[2021-04-16] MEDS ORDERED: METR-34 PO (02:34)
[2021-04-16] MEDS ORDERED: cefTRIAXone IM 500 MG VIAL. IM ONE (03:00)
[2021-04-17 18:12] LABS: GC PROBE Negative (Negative)
== END 2021-04-16 03:26 | disposition home or self-care (01) ==
LOC: ER 23:44
DX: N73.0 Acute parametritis and pelvic cellulitis (principal); N86 Erosion and ectropion of cervix uteri; N76.0 Acute vaginitis; B96.89 Other specified bacterial agents as the cause of diseases classified elsewhere; I10 Essential (primary) hypertension
CPT/HCPCS: 80053; 81001; 81025; 85025; 87491; 87591; 96372; 99285; J0696; Q0111

== ENCOUNTER 2021-07-02 12:47 | Emergency (ER) | payer SELFPAY ==
[~2021-07-02] VITALS: Ht 162.6 cm; Wt 78.4 kg
[~2021-07-02 12:47] MED LIST changes: +DOXY100C3 PO; +METR-34 PO
[2021-07-02 13:31] LABS: BASO % 1 % (0-3); EOS # 0.1 x10^3/uL (0.0-0.7); EOS % 1 % (0-3); HEMATOCRIT 29.6 % (36.0-47.0); HEMOGLOBIN 9.9 g/dL (12.0-15.5); LYMPH # 1.2 x10^3/uL (1.0-4.8); LYMPH % 26 % (24-48); MEAN CORPUSCULAR HEMOGLOBIN 28 pg (25-35); MEAN CORPUSCULAR HGB CONC 33 g/dL (31-37); MEAN CORPUSCULAR VOLUME 83 fL (79-100); MONO # 0.4 x10^3/uL (0.0-1.1); MONO % 8 % (0-9); NEUT # 3.1 x10^3/uL (1.8-7.7); NEUT % 65 % (31-73); PLATELET COUNT 322 x10^3/uL (140-400); RED BLOOD COUNT 3.57 x10^6/uL (3.50-5.40); WHITE BLOOD COUNT 4.9 x10^3/uL (4.0-11.0)
[2021-07-02 13:42] LABS: CALCIUM 8.8 mg/dL (8.5-10.1); CREATININE 0.9 mg/dL (0.6-1.0); GFR 82.7; POTASSIUM 3.3 mmol/L (3.5-5.1)
[2021-07-02 14:13] LABS: BILIRUBIN,URINE NEGATIVE (NEG); CLARITY,URINE CLEAR; COLOR,URINE YELLOW; NITRITE,URINE NEGATIVE (NEG); PROTEIN,URINE 30 mg/dL (NEG-TRACE); UROBILINOGEN,URINE 0.2 mg/dL (0.2 mg/dL)
[2021-07-02 14:19] LABS: BARBITURATES NEG (NEG); BENZODIAZEPINES NEG (NEG); CANNABINOIDS NEG (NEG); COCAINE NEG (NEG); METHADONE NEG (NEG); OPIATES NEG (NEG); PHENCYCLIDINE POS (NEG)
[2021-07-02 14:21] LABS: BACTERIA,URINE MODERATE /HPF (0-FEW); RBC,URINE 0 /HPF (0-2)
[2021-07-02 14:23] LABS: AMPHETAMINE/METHAMPHETAMINE POS (NEG); YEAST,URINE PRESENT /HPF
--- NOTE | 2021-07-02 14:59 | PHYS DOC ---
Past Medical History Past Medical History: Hypertension, Other Additional Past Medical Histor: uterine fibroid, hernia (MERLENE DIXON) Past Surgical History: No Surgical History (MERLENE DIXON) Smoking Status: Never Smoker Alcohol Use: None Drug Use: Marijuana, Methamphetamine, Phencyclidine (MERLENE DIXON) General Adult EDM: Chief Complaint: LOWER EXT PAIN HPI: HPI: Patient is a 41 year old female who presents with multiple red lesions to her posterior aspect of left lower extremity. Patient states she noticed the first 1 about 3 months ago, but it is now larger and darker in color. She states she had a second lesion show up recently, which is 3 times the size of the first. She states she can feel "something moving inside of there." She states it is worse when she showers or with manipulation. Patient denies fever, chills, night sweats and any pain or swelling. Patient reports use of marijuana PCP and methamphetamines. She denies use of tobacco products, IV drug use and alcohol use. Patient reports past medical history of hypertension and an umbilical hernia. Patient has no other complaints at this time. (MERLENE DIXON) Review of Systems: Review of Systems: ROS negative except as mentioned in HPI. (MERLENE DIXON) Heart Score: C/O Chest Pain: No (MERLENE DIXON) Allergies: Allergies: Allergies Coded Allergies Type Severity Reaction Last Updated Verified No Known Drug Allergies 07/02/21 No (MERLENE DIXON) Physical Exam: PE: Constitutional: Well developed, well nourished, no acute distress, non-toxic appearance. Cardiovascular: Heart rate regular rhythm, no murmur. Lungs & Thorax: Bilateral breath sounds clear to auscultation. Skin: Multiple small (less than 2 inches) areas of erythema without open lesion, discharge, fluctuance, induration. Largest of these is on the posterior calf has less than 2 mm wide palpable mass. Skin otherwise warm, dry, no erythema. Extremities: No tenderness, no cyanosis, no clubbing, ROM intact, no edema. Neurologic: Alert and oriented x3, normal motor function, normal sensory function, no focal deficits noted. Psychologic: Affect normal, poor judgment, mood "concerned." (MERLENE DIXON) Current Patient Data: Labs: Laboratory Tests Test 07/02/21 13:20 07/02/21 13:25 07/02/21 14:05 White Blood Count 4.9 x10^3/uL (4.0-11.0) Red Blood Count 3.57 x10^6/uL (3.50-5.40) Hemoglobin 9.9 g/dL (12.0-15.5) L Hematocrit 29.6 % (36.0-47.0) L Mean Corpuscular Volume 83 fL (79-100) Mean Corpuscular Hemoglobin 28 pg (25-35) Mean Corpuscular Hemoglobin Concent 33 g/dL (31-37) Red Cell Distribution Width 15.0 % (11.5-14.5) H Platelet Count 322 x10^3/uL (140-400) Neutrophils (%) (Auto) 65 % (31-73) Lymphocytes (%) (Auto) 26 % (24-48) Monocytes (%) (Auto) 8 % (0-9) Eosinophils (%) (Auto) 1 % (0-3) Basophils (%) (Auto) 1 % (0-3) Neutrophils # (Auto) 3.1 x10^3/uL (1.8-7.7) Lymphocytes # (Auto) 1.2 x10^3/uL (1.0-4.8) Monocytes # (Auto) 0.4 x10^3/uL (0.0-1.1) Eosinophils # (Auto) 0.1 x10^3/uL (0.0-0.7) Basophils # (Auto) 0.0 x10^3/uL (0.0-0.2) Sodium Level 141 mmol/L (136-145) Potassium Level 3.3 mmol/L (3.5-5.1) L Chloride Level 104 mmol/L (98-107) Carbon Dioxide Level 25 mmol/L (21-32) Anion Gap 12 (6-14) Blood Urea Nitrogen 17 mg/dL (7-20) Creatinine 0.9 mg/dL (0.6-1.0) Estimated GFR (Cockcroft-Gault) 82.7 Glucose Level 86 mg/dL (70-99) Calcium Level 8.8 mg/dL (8.5-10.1) Urine Collection Type Unknown Urine Color Yellow Urine Clarity Clear Urine pH 6.0 (<5.0-8.0) Urine Specific [place] >=1.030 (1.000-1.030) Urine Protein 30 mg/dL (NEG-TRACE) Urine Glucose (UA) Negative mg/dL (NEG) Urine Ketones (Stick) 15 mg/dL (NEG) Urine Blood Negative (NEG) Urine Nitrite Negative (NEG) Urine Bilirubin Negative (NEG) Urine Urobilinogen Dipstick 0.2 mg/dL (0.2 mg/dL) Urine Leukocyte Esterase Trace (NEG) Urine RBC 0 /HPF (0-2) Urine WBC 1-4 /HPF (0-4) Urine Squamous Epithelial Cells Mod /LPF Urine Bacteria Moderate /HPF (0-FEW) Urine Mucus Mod /LPF Urine Yeast Present /HPF Urine Opiates Screen Neg (NEG) Urine Methadone Screen Neg (NEG) Urine Barbiturates Neg (NEG) Urine Phencyclidine Screen Pos (NEG) Urine Amphetamine/Methamphetamine Pos (NEG) Urine Benzodiazepines Screen Neg (NEG) Urine Cocaine Screen Neg (NEG) Urine Cannabinoids Screen Neg (NEG) Urine Ethyl Alcohol Neg (NEG) POC Urine HCG, Qualitative Hcg negative (Negative) Laboratory Tests 07/02/21 13:20 Laboratory Tests 07/02/21 13:20 Vital Signs: Vital Signs Date Time Temp Pulse Resp B/P (MAP) Pulse Ox O2 Delivery O2 Flow Rate FiO2 07/02/21 14:01 98 22 141/83 (102) Room Air 07/02/21 13:01 98.4 98 98.4 (MERLENE DIXON) Radiology/Procedures: Radiology/Procedures: PROCEDURE: VENOUS LOWER EXTREMITY RIGHT EXAMINATION: US DPLX VENOUS EXTREMITY LOWER RT INDICATION: Reason: erythematous calf/ / Spl. Instructions: / History: COMPARISONS: 04/24/2018 TECHNIQUE: Grayscale, color and spectral Doppler evaluation of the right lower extremity deep venous system(s) was performed. FINDINGS: right common femoral, femoral and popliteal veins are normally compressible and demonstrate normally directed and appropriately phasic flow with augmentation. Normal flow is present within the saphenofemoral junctions and deep femoral veins in the proximal thighs and the posterior tibial and peroneal veins in the proximal calves. IMPRESSION: No evidence of deep venous thrombosis in the right lower extremity. Electronically signed by: Faheem Clarke DO (07/02/2021 3:06 PM) [id number] (MERLENE DIXON) Course & Med Decision Making: Course & Med Decision Making Pertinent Labs and Imaging studies reviewed. (See chart for details) Patient reports movement of what ever she believes to be in her leg here in the department, but it is not observed by myself or nursing staff. She states she i s concerned that she will be "written off" due to her substance use history, as she has been seen for similar symptoms in the past and told it was a result of her substance use. Ultrasound was ordered to rule out superficial venous thrombosis versus thrombophlebitis. Ultrasound performed today was negative. Contact dermatitis reaction as well as insect bites discussed with patient as possible sources of her multiple skin lesions on her lower leg. Patient instructed to use [id number] hy drocortisone and/or antihistamines for symptom relief. If the lesions do not improve or worsen, she was provided with contact information for a venetian blind cleaner. Cessation of substance use was discussed with the patient as well. Patient understands and is agreeable to discharge plan. (MERLENE DIXON) Dragon Disclaimer: Dragon Disclaimer: This electronic medical record was generated, in whole or in part, using a voice recognition dictation system. (MERLENE DIXON) Departure Departure Impression: Primary Impression: Skin depigmentation Additional Impressions: Skin lesion of right lower extremity Anemia Qualified Codes: D64.9 - Anemia, unspecified Disposition: 01 HOME / SELF CARE / HOMELESS Condition: STABLE Referrals: ELIZABET BUTLER (PCP) Patient Instructions: Rash, [id number] Additional Instructions: No clots, inflammation or foreign body are seen on ultrasound of areas of concern on your right lower extremity. The skin lesions on your leg could be a contact dermatitis or insect bites. If they cause you any discomfort or itching in the future, you may use topical antihistamine or topical steroid cream. I advised you to discontinue use of amphetamines, PCP and other street drugs. These substances could be contributing to your complaints today. If you continue to experience discomfort or the lesions spread, you may visit a venetian blind cleaner. Your primary care provider can further evaluate and manage the anemia seen on blood work today. Please return to the emergency department if your symptoms worsen or you develop new symptoms. Dr. Ramonita Galeano MD Dermatology [address] [place] [address] Attending Signature Attending Signature I have reviewed the PA/CHANNEL CEMENTER's note and plan of care. I was available for consultation as needed during the patient's visit in the emergency department. I agree with the clinical impression, plan, and disposition. (ERICKA PURCELL DO) MERLENE DIXON Jul 02, 2021 14:59 ERICKA PURCELL DO Jul 02, 2021 17:03
[2021-07-02 15:00] VITALS: BP 154/97
--- NOTE | 2021-07-02 15:08 | RAD ---
EXAMINATION: US DPLX VENOUS EXTREMITY LOWER RT INDICATION: Reason: erythematous calf/ / Spl. Instructions: / History: COMPARISONS: 04/24/2018 TECHNIQUE: Grayscale, color and spectral Doppler evaluation of the right lower extremity deep venous system(s) was performed. FINDINGS: right common femoral, femoral and popliteal veins are normally compressible and demonstrate normally directed and appropriately phasic flow with augmentation. Normal flow is present within the saphenofemoral junctions and deep femoral veins in the proximal thi ghs and the posterior tibial and peroneal veins in the proximal calves. IMPRESSION: No evidence of deep venous thrombosis in the right lower extremity. Electronically signed by: Faheem Clarke DO (07/02/2021 3:06 PM) [id number]
== END 2021-07-02 15:48 | disposition home or self-care (01) ==
LOC: ER 12:47
DX: D64.9 Anemia, unspecified (principal); L98.8 Other specified disorders of the skin and subcutaneous tissue; L81.8 Other specified disorders of pigmentation; I10 Essential (primary) hypertension
CPT/HCPCS: 36415; 80048; 80307; 81001; 81025; 85025; 87086; 93971; 99284

== ENCOUNTER 2022-02-05 14:46 | Emergency (ER) | payer SELFPAY ==
[~2022-02-05] VITALS: Ht 162.6 cm; Wt 72.7 kg
[2022-02-05 14:50] VITALS: BP 133/86
[2022-02-05] MEDS ORDERED: DIPHTH,PERTUSS(ACELL),TET TOX 0.5 ML DISP.SYRIN. VAX IM ONE (15:45)
[2022-02-05] MEDS ORDERED: IBUPROFEN 200 MG TABLET. PO ONE (15:45)
[2022-02-05] MEDS ORDERED: BACITRACIN TOPICAL OINT PACKET. TP ONE (15:45)
[2022-02-05] MEDS ORDERED: ACETAMINOPHEN 325 MG TABLET. PO ONE (15:45)
[2022-02-05] MEDS ORDERED: IBUP-1007 PO (17:33)
[2022-02-05] MEDS ORDERED: CEPH500T PO (17:33)
--- NOTE | 2022-02-05 17:34 | PHYS DOC ---
Past Medical History Past Medical History: Hypertension, Other Additional Past Medical Histor: uterine fibroid, hernia Past Surgical History: No Surgical History Smoking Status: Never Smoker Alcohol Use: None Drug Use: Marijuana, Methamphetamine, Phencyclidine General Adult EDM: Chief Complaint: MULTIPLE COMPLAINTS HPI: HPI: Patient is a 41-year-old female presents to the emergency department complaining of lacerating her right foot near her heel approximately 1 week ago while attempting to shave her calluses off. Patient reports her last tetanus immunization was greater than 5 years ago. Patient denies taking medications for pain or discomfort or trying nonpharmacological pain relief methods. Patient states she has been cleansing her cut foot daily since she shaved her calluses off. Patient reports her pain is not getting any better. Patient denies other physical complaints or physical concerns. Review of Systems: Review of Systems: 14 body systems of review of systems have been reviewed. See HPI for pertinent positives and negative responses, otherwise all other systems are negative, nonpertinent or noncontributory. Constitutional: Negative except as outlined in HPI above. Skin: Negative except as outlined in HPI above. Eyes: Negative except as outlined in HPI above. HENT: Negative except as outlined in HPI above. Respiratory: Negative except as outlined in HPI above. Cardiovascular: Negative except as outlined in HPI above. GI: Negative except as outlined in HPI above. : Negative except as outlined in HPI above. Musculoskeletal: Negative except as outlined in HPI above. Integument: Negative except as outlined in HPI above. Neurologic: Negative except as outlined in HPI above. Endocrine: Negative except as outlined in HPI above. Lymphatic: Negative except as outlined in HPI above. Psychiatric: Negative except as outlined in HPI above. Heart Score: C/O Chest Pain: No Risk Factors: Risk Factors: DM, Current or recent (<one month) smoker, HTN, HLP, family history of CAD, obesity. Risk Scores: Score 0 - 3: 2.5% MACE over next 6 weeks - Discharge Home Score 4 - 6: 20.3% MACE over next 6 weeks - Admit for Clinical Observation Score 7 - 10: 72.7% MACE over next 6 weeks - Early Invasive Strategies Current Medications: Current Medications Medications (Trade) Dose Ordered Sig/Arnoldo Start Time Stop Time Status Last Admin Dose Admin Acetaminophen (Tylenol) 650 mg 1X ONCE 02/05/22 15:45 02/05/22 15:46 DC 02/05/22 15:50 650 MG Bacitracin (Bacitracin Zinc Oint Pkt) 1 pkt 1X ONCE 02/05/22 15:45 02/05/22 15:46 DC 02/05/22 15:51 1 PKT Diphtheria/ Tetanus/Acell Pertussis (Boostrix) 0.5 ml ONCE ONCE 02/05/22 15:45 02/05/22 15:46 DC 02/05/22 15:53 0.5 ML Ibuprofen (Motrin) 600 mg 1X ONCE 02/05/22 15:45 02/05/22 15:46 DC 02/05/22 15:50 600 MG Allergies: Allergies: Allergies Coded Allergies Type Severity Reaction Last Updated Verified No Known Drug Allergies 02/05/22 No Physical Exam: PE: Constitutional: Well developed, well nourished, no acute distress, non-toxic appearance. 41-year-old female in no apparent distress. HENT: Normocephalic, atraumatic. Eyes: Conjunctiva normal, no discharge. Neck: Normal range of motion, no stridor. Cardiovascular: No cyanosis appreciated, distal cap refill less than 2 seconds. Lungs & Thorax: Patient is in no respiratory distress, no audible adventitious lung sounds appreciated. Abdomen: Nontender, no abnormalities noted. Skin: Warm, dry, no erythema, no rash. See extremity note for focused skin examination Back: No tenderness, no deformities. Extremities: No tenderness, no cyanosis, no clubbing, ROM intact, no edema. Except for right foot needle medial heel there are 2 small approximately 1 cm abrasions without purulent drainage, they are slightly erythematous, there is no lymphangitis appreciated, bilateral distal cap refill of lower extremities less than 2 seconds, bilateral dorsalis pedis pulses 2+. Full AROM/PROM of adjacent joints. There is no swelling or contusion. Neurologic: Alert and oriented X 3, normal motor function, normal sensory function, no focal deficits noted. Psychologic: Affect normal, judgement normal, mood normal. Current Patient Data: Vital Signs: Vital Signs Date Time Temp Pulse Resp B/P (MAP) Pulse Ox O2 Delivery O2 Flow Rate FiO2 02/05/22 14:50 98.6 104 18 133/86 (102) 100 Room Air 98.6 EKG: EKG: [] Radiology/Procedures: Radiology/Procedures: [] Course & Med Decision Making: Course & Med Decision Making Pertinent Labs and Imaging studies reviewed. (See chart for details) 41-year-old female, vital signs reviewed, presents to the emergency department concerning painful abrasions to right heel after shaving calluses off 1 week ago . Physical examination suspicious of right heel cellulitic infection, will start on Keflex regimen, will cleanse and apply antibiotic ointment to abrasions of the right heel, will bring patient's tetanus immunization up-to-date with Tdap today in the emergency department, give p.o. pain medications. Discussed with patient wound care, antibiotic use and side effects, follow-up with primary care Dr. Butler this week for reevaluation and ongoing management of pain. Return to ER precautions and concerns were discussed, patient gave verbal understanding of it is amenable to ED discharge planning. Discussed with the patient all findings and diagnostic testing as well as the need to follow-up with their primary care provider for further evaluation and tr eatment or return to the ED if any new or worsening symptoms. Strict return precautions were also discussed at length, the patient voiced understanding and agreement with the discharge planning. The patient was nontoxic in appearance, in no apparent distress, and hemodynamically stable at the time of disposition. Leannaon Disclaimer: Angelina Disclaimer: This electronic medical record was generated, in whole or in part, using a voice recognition dictation system. Departure Departure Impression: Primary Impression: Abrasion of right foot Qualified Codes: S90.811A - Abrasion, right foot, initial encounter Additional Impressions: Need for Tdap vaccination Cellulitis of foot Disposition: 01 HOME / SELF CARE / HOMELESS Condition: GOOD Referrals: ELIZABET BUTLER (PCP) Patient Instructions: Abrasions, Cellulitis Additional Instructions: You were seen today in the emergency department related to pain at the abrasion sites of your right foot after you had attempted to shave off your calluses. As we discussed your tetanus immunization was brought up-to-date today in the emergency department with a medication called Tdap, please update your immunization records accordingly, please apply antibiotic ointment and perform daily wound care to your right heel abrasions until healed. I am starting you on a antibiotic to take, you will take 1 tablet 4 times a day for the next 5 days. Please take this time to make an appointment to see Dr. Butler this coming week for reevaluation of your right foot infection. You may use [id number] Tylenol and or Motrin for ongoing aches and pains. Thank you for visiting our Emergency Department. It was a pleasure taking care of you today in the emergency department and we appreciate you trusting us with your care. If any additional problems come up don't hesitate to return to visit us. Please follow up with your primary care provider so they can plan additional care if needed and know about the problem that you had. If symptoms worsen come back to the Emergency Department. Any concerning symptoms that start such as chest pain, shortness of air, weakness or numbness on one side of the body, running high fevers or any other concerning symptoms return to the ER. Scripts Ibuprofen (IBUPROFEN) 600 Mg Tablet 600 MG PO PRN Q6HRS PRN for INFLAMMATION, #30 TAB 0 Refills Prov: ERICKA BRENNAN APRN 02/05/22 Cephalexin (CEPHALEXIN) 500 Mg Tablet 1 TAB PO QID for right foot cellulitis for 5 Days, #20 TAB 0 Refills Prov: ERICKA BRENNAN APRN 02/05/22 ERICKA BRENNAN APRN February 05, 2022 17:34
== END 2022-02-05 17:52 | disposition home or self-care (01) ==
LOC: ER 14:46
DX: S90.811A Abrasion, right foot, initial encounter (principal); L03.115 Cellulitis of right lower limb; I10 Essential (primary) hypertension; Y28.8XXA Contact with other sharp object, undetermined intent, initial encounter; Y93.89 Activity, other specified; Y92.89 Other specified places as the place of occurrence of the external cause; Y99.8 Other external cause status
CPT/HCPCS: 90471; 90715; 99284

== ENCOUNTER 2022-02-09 23:34 | Emergency (ER) | payer SELFPAY ==
[~2022-02-09] VITALS: Ht 162.6 cm; Wt 78.0 kg
[~2022-02-09 23:34] MED LIST changes: +CEPH500T PO; +IBUP-1007 PO
--- NOTE | 2022-02-10 00:35 | PHYS DOC ---
Past Medical History Past Medical History: Hypertension, Other Additional Past Medical Histor: uterine fibroid, hernia Past Surgical History: No Surgical History Smoking Status: Never Smoker Alcohol Use: None Drug Use: Marijuana, Methamphetamine, Phencyclidine General Adult EDM: Chief Complaint: INSECT BITE HPI: HPI: Patient is a 41 year old female who presents with "spider bite" to the posterior aspect of the left knee. Patient states she was in the basement at her mother's house gathering clothes when she killed a spider she noticed on the floor. Shortly after, she noticed a feeling "like a mosquito bite" on the back of her knee. It became red and itchy. Patient applied topical benadryl cream. She states this occurred during the early afternoon hours today. Patient presents to the ED now because she also has a headache. She is concerned that the spider bite is affecting her whole body. Patient denies fever, chills, generalized weakness, SOB, cough, abd pain, N/V/D, discharge or necrosis of wound. Review of Systems: Review of Systems: ROS negative or noncontributory except as mentioned in HPI. Heart Score: C/O Chest Pain: No Allergies: Allergies: Allergies Coded Allergies Type Severity Reaction Last Updated Verified No Known Drug Allergies 02/05/22 No Physical Exam: PE: Constitutional: Well developed, well nourished, no acute distress, non-toxic ap pearance. HENT: Normocephalic, atraumatic, bilateral external ears normal, oropharynx moist, no oral exudates, nose normal. Eyes: EOMI, conjunctiva normal, no discharge. Neck: Normal range of motion, no stridor. Skin: 2mm macule noted on medioposterior aspect of left knee with some surrounding erythema, no fluctuance or induration appreciated, no ulceration or necrosis. Skin otherwise warm, dry, no erythema, no rash. Extremities: No tenderness, no cyanosis, no clubbing, ROM intact, no edema. Neurologic: Alert and oriented x4, normal motor function, normal sensory function, no focal deficits noted. Current Patient Data: Vital Signs: Vital Signs Date Time Temp Pulse Resp B/P (MAP) Pulse Ox O2 Delivery O2 Flow Rate FiO2 02/10/22 00:50 98.0 99 16 162/100 (120) 100 Room Air 98.0 02/10/22 00:18 98.1 109 16 166/111 (129) 100 Room Air 98.1 Course & Med Decision Making: Course & Med Decision Making Pertinent Labs and Imaging studies reviewed. (See chart for details) Patient presents with insect bite that shows no signs of skin breakdown, necrosis or systemic effects at this time. Patient will be provided with wound care clinic information should her wound condition worsen. Elevated blood pressure discussed. Supportive measures and return precautions provided. Patient understands and is agreeable to discharge plan. Dragon Disclaimer: Dragon Disclaimer: This electronic medical record was generated, in whole or in part, using a voice recognition dictation system. Departure Departure Impression: Primary Impression: Insect bite Qualified Codes: S80.862A - Insect bite (nonvenomous), left lower leg, initial encounter; W57.XXXA - Bitten or stung by nonvenomous insect and other nonvenomous arthropods, initial encounter Additional Impression: Elevated blood pressure reading Disposition: HOME / SELF CARE / HOMELESS Condition: STABLE Referrals: ELIZABET BUTLER (PCP) Patient Instructions: How to Take Your Blood Pressure, [id number], Insect Bite, [id number] Additional Instructions: [facility] [address] [place] [address] EMERGENCY DEPARTMENT GENERAL DISCHARGE INSTRUCTIONS Thank you for coming to [facility] Emergency Department (ED) today and trusting us with you care. We trust that you had a positive experience in our Emergency Department. If you wish to speak to the department management, you may call the director at . YOUR FOLLOW UP INSTRUCTIONS ARE FOLLOWS: 1. Follow up with your primary care doctor. If you do not have a primary doctor, please ask for a resource list of physicians or clinics that may be able to assist you with follow up care. 2. The emergency provider has interpreted your imaging studies, if any were ordered. The radiology intelligence operations specialist also reviewed them. If there is a change in the findings, you will be notified in 48 hours when at all possible. 3. If a lab test or culture has been done, your results will be reviewed and you will be notified if you need a change in treatment. 4. Follow instructions verbalized to you and refer to the printouts if needed. ADDITIONAL INSTRUCTIONS AND INFORMATION: 1. Your care today has been supervised by a physician who is specially trained in emergency care. Many problems require more than one evaluation for a comp lete diagnosis and treatment. We recommend that you schedule your follow up appointment as recommended to ensure complete treatment of you illness or injury. If you are unable to obtain follow up care and continue to have a problem, or if your condition worsens, we recommend that you return to the ED. 2. We are not able to safely determine your condition over the phone nor are we able to give sound medical advice over the phone. For these safety reasons, if you call for medical advice we will ask you to come to the ED for further evaluation. 3. If you have any questions regarding these discharge instructions please call the ED at . SAFETY INFORMATION: In the interest of safety, wellness, and injury prevention; we encourage you to wear your seat belt, if you smoke; quite smoking, and we encourage family to use a protective helmet for bicycling and other sporting events that present an increased risk for head injury. IF YOUR SYMPTOMS WORSEN OR NEW SYMPTOMS DEVELOP, OR YOU HAVE CONCERNS ABOUT YOUR CONDITION; OR IF YOUR CONDITION WORSENS WHILE YOU ARE WAITING FOR YOUR FOLLOW UP APPOINTMENT; EITHER CONTACT YOUR PRIMARY CARE DOCTOR, THE PHYSICIAN WHOSE NAME AND NUMBER YOU WERE GIVEN, OR RETURN TO THE ED IMMEDIATELY. MERLENE DIXON February 10, 2022 00:35
[2022-02-10] MEDS ORDERED: IBUPROFEN 400 MG TABLET. PO ONE (00:45)
[2022-02-10 00:50] VITALS: BP 162/100
== END 2022-02-10 00:54 | disposition home or self-care (01) ==
LOC: ER 23:34
DX: S80.862A Insect bite (nonvenomous), left lower leg, initial encounter (principal); I10 Essential (primary) hypertension; W57.XXXA Bitten or stung by nonvenomous insect and other nonvenomous arthropods, initial encounter; Y93.89 Activity, other specified; Y92.89 Other specified places as the place of occurrence of the external cause; Y99.8 Other external cause status
CPT/HCPCS: 99282